=== PATIENT | female | born 1975 | race African-American/Black ===

== ENCOUNTER 2017-01-14 17:43 | Emergency (ER) | payer OTHER ==
[2017-01-14 17:54] VITALS: BP 150/68
--- NOTE | 2017-01-14 19:00 | ED Physician Documentation ---
General Adult - HISTORIAN Historian: patient - HPI Stated Complaint: Right Shoulder Pain Chief Complaint: General Adult Additional Information: rib l;esion rt t-3 ext rt shoulder Onset: days ago (3) Timing: worse Severity: moderate Further Comments: yes (takes ibu 8/day=inadequate relief) - ROS CONST: no problems EYES/ENT: none CVS/RESP: none GI/: none - PAST HX Past History: none Surgeries/Procedures: BTL Allergies/Adverse Reactions: Allergies Allergy/AdvReac Type Severity Reaction Status Date / Time Penicillins Allergy Verified 01/14/17 17:55 Home Medications: Ambulatory Orders Medication Instructions Recorded NK [NK] 01/14/17 - SOCIAL HX Smoking History: non-smoker Alcohol Use: none Drug Use: none - FAMILY HX Family History: Yes - VITAL SIGNS Vital Signs: Vital Signs Temp Pulse Resp BP Pulse Ox 98.1 F 90 18 150/68 99 01/14/17 17:45 01/14/17 17:45 01/14/17 17:45 01/14/17 17:45 01/14/17 17:45 - REVIEWED ASSESSMENTS Nursing Assessment Reviewed: Yes Vitals Reviewed: Yes General Adult Physical Exam - PHYSICAL EXAM GENERAL APPEARANCE: moderate distress EENT: eye inspection normal NECK: normal inspection, other (palp lesion t-3 rt ext to shoulder) RESPIRATORY: no resp distress, chest non-tender, breath sounds normal CVS: reg rate & rhythm, heart sounds normal ABDOMEN: soft, non-tender BACK: CVA tenderness (R) (t3) SKIN: warm/dry, normal color. No: cyanosis, diaphoresis, jaundice EXTREMITIES: non-tender, normal range of motion NEURO: oriented X3, CN's nml as tested, motor nml, sensation nml, mood/affect nml Discharge Clincal Impression: t-3 rt ligt sprain Referrals: Primary Doctor,No [Primary Care Provider] - 2 Days Home Medications: Ambulatory Orders NK [NK] 01/14/17 Condition: Good Disposition: 01 HOME, SELF-CARE Decision to Admit: NO Decision Time: 19:00
== END 2017-01-14 19:00 | disposition home or self-care (01) ==
LOC: ED 17:43
DX: S43.401A Unspecified sprain of right shoulder joint, initial encounter (principal); X58.XXXA Exposure to other specified factors, initial encounter; Y93.9 Activity, unspecified; Y99.9 Unspecified external cause status
CPT/HCPCS: 99283

== ENCOUNTER 2017-01-30 09:11 | Emergency (ER) | payer OTHER ==
--- NOTE | 2017-01-30 10:17 | ED Physician Documentation ---
Female Urogenital Problems - HISTORIAN Historian: patient - HPI Stated Complaint: Herpes outbreak Chief Complaint: Female Urogenital Problems Additional Information: recurrent genital herpes, 3rd time this year Onset: days ago (1) Severity: moderate Location of Pain: vaginal pain Further Comments: no - Vaginal Bleeding Sexual History: active - Associated Symptoms Urinary Symptoms: none Discharge: other (no discharge) - ROS CONST: no problems GI/: denies: nausea, vomiting, decreased appetite, diarrhea, black stools, bloody stools CVS/RESP: none EYES/ENT: none NEURO/PSYCH: none MS/SKIN/LYMPH: none - PAST HX Past History: other (herpes simplex) Other History: none Surgeries/Procedures: none Immunizations: referred to PCP Allergies/Adverse Reactions: Allergies Allergy/AdvReac Type Severity Reaction Status Date / Time Penicillins Allergy Mild Verified 01/30/17 09:25 Home Medications: Ambulatory Orders Medication Instructions Recorded Tramadol HCl [Ultram] 50 mg PO PRN 01/30/17 - SOCIAL HX Smoking History: cigarettes Alcohol Use: occasionally Drug Use: none - FAMILY HX Family History: none - VITAL SIGNS Vital Signs: Vital Signs Temp Pulse Resp BP Pulse Ox 98.2 F 91 H 16 119/71 99 01/30/17 09:22 01/30/17 09:22 01/30/17 09:22 01/30/17 09:31 01/30/17 09:22 - REVIEWED ASSESSMENTS Nursing Assessment Reviewed: Yes Vitals Reviewed: Yes Progress - Results/Orders Results/Orders: no testing ordered - Progress Progress: pt. stable entire time in er Critical Care Note - Critical Care Note Total Time (mins): 0 ED Results Lab/Radiology - Lab Results Lab Results: none ordered - Radiology Radiology Impressions: none ordered Female Urogenital Problems - EXAM General Appearance: no acute distress, alert EENT: eye inspection normal, ENT inspection normal, pharynx normal, no signs of dehydration, EMERSON, no nystagmus, TM's nml Neck: nml inspection Respiratory: no resp. distress, breath sounds nml CVS: reg rate & rhythm, heart sounds normal, equal pulses, no murmur Abdomen: soft, non-tender, no organomegaly, no distention, nml bowel sounds Back: non-tender Skin: color nml, no rash Extremities: non-tender, normal range of motion, no evidence of injury Neuro: oriented X3, CN's nml as tested, motor nml, sensation nml Discharge Clincal Impression: Genital herpes Qualifiers: Herpes simplex infection site: vulvovaginitis Qualified Code(s): A60.04 - Herpesviral vulvovaginitis Referrals: Primary Doctor,No [Primary Care Provider] - 2 Days Home Medications: Ambulatory Orders Tramadol HCl [Ultram] 50 mg PO PRN 01/30/17 Comments: discharged in stable condition with prescription for Valtrex 500 mg 1 p.o. bid for 7 days with 2 refills Condition: Stable Disposition: 01 HOME, SELF-CARE Decision to Admit: NO Decision Time: 10:00
[2017-01-30 10:18] VITALS: BP 122/72
== END 2017-01-30 10:15 | disposition home or self-care (01) ==
LOC: ED 09:11
DX: A60.04 Herpesviral vulvovaginitis (principal)
CPT/HCPCS: 99283

== ENCOUNTER 2017-02-12 03:10 | Emergency (ER) | payer OTHER ==
[2017-02-12] MEDS ORDERED: DIAZEPAM 5 MG/ML DISP.SYRIN ONE (03:50)
[2017-02-12 03:54] LABS: BASOPHILS % 0.5 (0.0-1.5); EOSINOPHILS % 1.5 % (0.0-6.8); MEAN CORPUSCULAR HEMOGLOBIN 32.2 pg (28.0-34.0); MEAN CORPUSCULAR VOLUME 92.4 fl (80.0-100.0); MONOCYTES % 3.7 % (0.0-11.0)
[2017-02-12] MEDS: DIAZEPAM 5 MG/ML DISP.SYRIN IVP ONE (03:54)
[2017-02-12 04:05] LABS: eGFR (African) > 60; eGFR (Non-African) > 60
--- NOTE | 2017-02-12 05:10 | ED Physician Documentation ---
Chest Pain - HISTORIAN Historian: patient - HPI Stated Complaint: Palpitations Chief Complaint: Chest Pain Additional Information: awoke 0100hrs chest discomfort anxiety rt shoulder and arm plain-all essentially gone now but shoulder pain-has had them before but this slightly different discomfort-awoke w/what she thought was panic attackstill feels some but that too ess gone Onset: hours (0100) Timing: sudden onset (awoke) Duration: constant, waxing, waning Last known Well Date: 02/12/17 Last Known Well Time: 02:45 Context: onset during:, sleep. denies: emotional upset (known) Severity: mild, moderate Quality: pressure, tightness, sharp Chest Pain Signs/Symptoms: denies: nausea, vomiting, diaphoresis - ROS CONST: none. denies: recent illness, recent injury MS/LYMPH: denies: ankle swelling, back pain (maybe slightly due to scoliosis) EYES/ENT: none NEURO/PSYCH: anxiety - PAST HX [place] risk factors: other (mitral valve plrolapse bipolar scoliosis) Lung disease: none Surgeries/Procedures: other (BTL TONSILS) Allergies/Adverse Reactions: Allergies Allergy/AdvReac Type Severity Reaction Status Date / Time Penicillins Allergy Mild Verified 02/12/17 03:46 Home Medications: Ambulatory Orders Medication Instructions Recorded Tramadol HCl [Ultram] 50 mg PO PRN 01/30/17 - SOCIAL HX Smoking History: non-smoker Alcohol Use: none Drug Use: none - FAMILY HX Family HX: none - VITAL SIGNS Vital Signs: Vital Signs Temp Pulse Resp BP Pulse Ox 97 F L 109 H 20 124/61 96 02/12/17 03:10 02/12/17 03:24 02/12/17 03:10 02/12/17 03:10 02/12/17 03:24 - REVIEWED ASSESSMENTS Nursing Assessment Reviewed: Yes Vitals Reviewed: Yes ED Results Lab/Radiology - Radiology Radiology Impressions: cxr= no acute disease seen - Orders Orders: ED Orders Category Date Time Status Continuous EKG monitoring Q30M Care 02/12/17 03:24 Active Continuous Pulse Oximetry Q30M Care 02/12/17 03:24 Active CHEST 1 VIEW [RAD] Stat Exams 02/12/17 03:24 Ordered CBC/PLATELET/DIFF Routine Lab 02/12/17 03:24 Received CMP Routine Lab 02/12/17 03:24 Received CREATINE KINASE Routine Lab 02/12/17 03:24 Received TROPONIN I (cTnI) Stat Lab 02/12/17 03:24 Received Diazepam [Valium] Med 02/12/17 03:50 Discontinued 5 mg .ROUTE .STK-MED ONE Diazepam [Valium] Med 02/12/17 03:50 Once 5 mg IVP NOW ONE EKG WITH COMPARISON Stat Ther 02/12/17 03:24 Ordered Chest Pain Physical Exam - EXAM General Appearance: mild distress, anxious EENT: eye inspection normal Neck: nml inspection, no carotid bruit Neuro: oriented X3, mood/affect nml, cognition normal Discharge Clincal Impression: atypical chest pain, hyperglycenia Referrals: Primary Doctor,No [Primary Care Provider] - 2 Days Home Medications: Ambulatory Orders Tramadol HCl [Ultram] 50 mg PO PRN 01/30/17 Comments: pt says better wants go home. will recheck bs via pcp very soon Condition: Good Disposition: 01 HOME, SELF-CARE Decision to Admit: NO Decision Time: 05:08
[2017-02-12 05:23] VITALS: BP 115/72
--- NOTE | 2017-02-12 07:21 | Diagnostic Imaging Report ---
PATRICK WORKMAN~ [facility] [address] [address] ~ ~ ~ ~ Report Submission Date: Feb 12, 2017 3:50:35 AM CDT Patient ~ Study Name: ELVIA DAMICO ~ Date: Feb 12, 2017 3:39:20 AM CDT ~ Modality Type: CR Gender: F ~ Description: CHEST : 77 ~ Institution: [facility] Physician: PATRICK WORKMAN ~ ~ ~ ~ Chest, 1 view History: Chest Pain. Findings: The heart size is normal. The lungs are clear. There is no pleural effusion or pneumothorax identified. The osseous structures are normal. Impression: 1. No acute pulmonary disease. ~ Electronically signed on Feb 12, 2017 3:50:35 AM CDT by: Alberto WISDOM
== END 2017-02-12 05:20 | disposition home or self-care (01) ==
LOC: ED 03:10
DX: R07.89 Other chest pain (principal); R73.9 Hyperglycemia, unspecified
CPT/HCPCS: 71010; 80053; 82550; 84484; 85025; 96374; 99283; J3360

== ENCOUNTER 2017-02-27 10:39 | Outpatient (CLI) | payer OTHER | END 2017-02-27 10:40 | LOC: LABRHC 10:39 | PROVIDERS: ATTEND Physician Assistant | DX: R30.0 Dysuria (principal) | CPT/HCPCS: 87086 ==

== ENCOUNTER 2017-03-09 21:07 | Emergency (ER) | payer OTHER ==
--- NOTE | 2017-03-09 21:42 | ED Physician Documentation ---
General Adult - HISTORIAN Historian: patient - HPI Stated Complaint: Cough Chief Complaint: General Adult Onset: days ago Timing: still present Severity: moderate Further Comments: yes (Pt is a 41 yo female with persistent cough for more than 10 days. Pt was rx'd keflex which she finished taking. Pt has diarrhea after taking Keflex. Pt has been wheezy, though she does not have asthma dx.) - ROS CONST: no problems EYES/ENT: other (hoarse voice) CVS/RESP: cough GI/: diarrhea MS/SKIN/LYMPH: none - PAST HX Past History: none Allergies/Adverse Reactions: Allergies Allergy/AdvReac Type Severity Reaction Status Date / Time Penicillins Allergy Mild Verified 03/09/17 21:22 Home Medications: Ambulatory Orders Medication Instructions Recorded Tramadol HCl [Ultram] 50 mg PO PRN 01/30/17 - SOCIAL HX Smoking History: non-smoker - FAMILY HX Family History: No - VITAL SIGNS Vital Signs: Vital Signs Temp Pulse Resp BP Pulse Ox 98.2 F 77 18 110/59 99 03/09/17 21:10 03/09/17 21:10 03/09/17 21:10 03/09/17 21:10 03/09/17 21:10 - REVIEWED ASSESSMENTS Nursing Assessment Reviewed: Yes Vitals Reviewed: Yes Progress - Progress Progress: Azithromycin 500 mg po in ER Metronidazole 500 mg po in ER. Rx Azithromycin 250 mg. Take one daily for 4 days. Rx Metronidazole 500 mg. Take one every 8 hrs for 7 days. Rx Albuterol (90 mcg/spray) MDI. Take 2 puffs every 4 to 6 hrs as needed for wheezing. General Adult Physical Exam - PHYSICAL EXAM GENERAL APPEARANCE: no distress EENT: pharynx normal NECK: normal inspection, supple RESPIRATORY: other (harsh cough) CVS: reg rate & rhythm, heart sounds normal BACK: normal inspection, no CVA tenderness SKIN: warm/dry, normal color EXTREMITIES: non-tender, normal range of motion, no evidence of injury, no edema NEURO: oriented X3, motor nml, sensation nml Discharge Clincal Impression: Persistent cough Referrals: Primary Doctor,No [Primary Care Provider] - 2 Days Home Medications: Ambulatory Orders Tramadol HCl [Ultram] 50 mg PO PRN 01/30/17 Condition: Good Disposition: 01 HOME, SELF-CARE Decision to Admit: NO Decision Time: 22:51
[2017-03-09] MEDS ORDERED: metroNIDAZOLE 500 MG TABLET PO ONE ×2 (22:05→22:06)
[2017-03-09] MEDS ORDERED: AZITHROMYCIN 250 MG TABLET PO ONE ×2 (22:05→22:06)
[2017-03-09 22:15] VITALS: BP 112/68
== END 2017-03-09 22:14 | disposition home or self-care (01) ==
LOC: ED 21:07
DX: R05 Cough (principal)
CPT/HCPCS: 99283

== ENCOUNTER 2017-03-20 09:05 | Emergency (ER) | payer OTHER ==
[2017-03-20 09:27] VITALS: BP 112/69
--- NOTE | 2017-03-20 09:32 | ED Physician Documentation ---
Female Urogenital Problems - HISTORIAN Historian: patient - HPI Stated Complaint: right flank pain, burning Chief Complaint: Female Urogenital Problems Additional Information: burning with urination, stress incontinence, leaks when coughing getting worse past few months, has recently been on flagyl for UTI, has malodorous discharge. Not on her period. Onset: days ago Severity: mild Location of Pain: flank pain Further Comments: no - Vaginal Bleeding LNMP (Last Known Menstrual Period): 02/28/17 - Associated Symptoms Urinary Symptoms: burning w/ urination Discharge: odorous discharge - ROS CONST: none GI/: denies: nausea, vomiting CVS/RESP: none EYES/ENT: none NEURO/PSYCH: none MS/SKIN/LYMPH: none - PAST HX Past History: none Other History: bladder infection Surgeries/Procedures: BTL Allergies/Adverse Reactions: Allergies Allergy/AdvReac Type Severity Reaction Status Date / Time Penicillins Allergy Mild Verified 03/20/17 09:15 Home Medications: Ambulatory Orders Medication Instructions Recorded Metronidazole [Metronidazole] 500 mg PO BID 03/20/17 - SOCIAL HX Smoking History: non-smoker Alcohol Use: rarely Drug Use: none - FAMILY HX Family History: none - VITAL SIGNS Vital Signs: Vital Signs Temp Pulse Resp BP Pulse Ox 99.2 F 84 16 112/69 99 03/20/17 09:16 03/20/17 09:16 03/20/17 09:16 03/20/17 09:16 03/20/17 09:16 - REVIEWED ASSESSMENTS Nursing Assessment Reviewed: Yes Vitals Reviewed: Yes ED Results Lab/Radiology - Lab Results Lab Results: UA shows blood but no leukocytes Female Urogenital Problems - EXAM General Appearance: no acute distress EENT: ENT inspection normal, no signs of dehydration Neck: nml inspection Respiratory: no resp. distress Abdomen: soft, non-tender, no distention. No: tenderness, guarding, rebound Back: non-tender Skin: color nml, no rash, warm,dry Extremities: non-tender Neuro: oriented X3 Discharge Clincal Impression: Cystitis, Yeast UTI, Stress incontinence in female Referrals: Primary Doctor,No [Primary Care Provider] - 2 Days Home Medications: Ambulatory Orders Metronidazole [Metronidazole] 500 mg PO BID 03/20/17 Condition: Good Disposition: 01 HOME, SELF-CARE Decision to Admit: NO Date of Decison to Admit: 03/20/17 Decision Time: 09:40
[2017-03-21 05:25] LABS: APPEARANCE,URINE CLEAR (CLEAR); COLOR,URINE YELLOW (YELLOW); OCCULT BLOOD,URINE 1+ (NEGATIVE); PH URINE 5.5 (5.0 - 8.0); UROBILINOGEN URINE 0.2 Eu (0.2-1.0)
== END 2017-03-20 09:57 | disposition home or self-care (01) ==
LOC: ED 09:05
DX: N30.90 Cystitis, unspecified without hematuria (principal); N39.0 Urinary tract infection, site not specified; N39.3 Stress incontinence (female) (male)
CPT/HCPCS: 81002; 99283

== ENCOUNTER 2017-04-24 00:25 | Emergency (ER) | payer OTHER ==
--- NOTE | 2017-04-24 00:51 | ED Physician Documentation ---
Upper Extremity Injury - HISTORIAN Historian: patient - HPI Stated Complaint: Rt FA pain since about 0020 Chief Complaint: Upper Extremity Injury Additional Information: pulling vigorously w/sprain ligts flexor surface rt forearm Onset: just prior to arrival (20 min ago domestic w/boyfriend) Where: home Severity: mild, moderate Duration: persistent since Associated Symptoms: denies: numbness distally Modifying Factors: pain on movement Further Comments: yes (no swelling or loss sensation - can flex rfingers ok but w/dixcomfort) - ROS CONST: no problems CVS/RESP: none NEURO: none MS/SKIN/LYMPH: none GI/: denies: nausea, vomiting - PAST HX Past History: Rt handed Allergies/Adverse Reactions: Allergies Allergy/AdvReac Type Severity Reaction Status Date / Time Penicillins Allergy Mild Verified 03/20/17 09:15 Home Medications: Ambulatory Orders Medication Instructions Recorded Metronidazole [Metronidazole] 500 mg PO BID 03/20/17 - SOCIAL HX Smoking History: non-smoker Alcohol Use: none Drug Use: none - FAMILY HX Family History: no significant history - VITAL SIGNS Vital Signs: Vital Signs Temp Pulse Resp BP Pulse Ox 84 18 128/77 99 04/24/17 00:25 04/24/17 00:25 04/24/17 00:25 04/24/17 00:25 - REVIEWED ASSESSMENTS Nursing Assessment Reviewed: Yes Vitals Reviewed: Yes Upper Extremity Injury Physic - Physical Exam General Appearance: mild distress Hand: normal inspection, non-tender, no evidence of injury, normal ROM Wrist: normal inspection. No: non-tender, no evidence of injury, normal ROM ( slight limited in flex ext hurts flexor tendons rt forearm) Elbow/Forearm: limited ROM, pain, soft tissue tenderness. No: normal inspection , normal ROM, bone tenderness, deformity, ecchymosis, swelling Shoulder: normal inspection Neuro/Vascular/Tendon: no vascular compromise Skin: warm,dry. No: diaphoretic, cool Head/ENT: nml inspection Neck/Back: nml inspection Resp/CVS: chest non-tender, breath sounds nml, heart sounds nml, lungs clear, reg. rate & rhythm Discharge Clincal Impression: ligt sprain rt forearm Referrals: Primary Doctor,No [Primary Care Provider] - 2 Days Home Medications: Ambulatory Orders Metronidazole [Metronidazole] 500 mg PO BID 03/20/17 Comments: home rest ice 20/60 min ibu or tylenol avoid strenuous use f/u if not better 5- 7 days Condition: Good Disposition: 01 HOME, SELF-CARE Decision to Admit: NO Decision Time: 00:56
[2017-04-24 00:55] VITALS: BP 128/77
== END 2017-04-24 00:50 | disposition home or self-care (01) ==
LOC: ED 00:25
DX: S56.911A Strain of unspecified muscles, fascia and tendons at forearm level, right arm, initial encounter (principal); X58.XXXA Exposure to other specified factors, initial encounter; Y93.9 Activity, unspecified; Y99.9 Unspecified external cause status
CPT/HCPCS: 99283

== ENCOUNTER 2017-07-01 12:26 | Emergency (ER) | payer OTHER ==
--- NOTE | 2017-07-01 12:34 | ED Physician Documentation ---
General Adult - HISTORIAN Historian: patient - HPI Stated Complaint: sore throat and ear pain Chief Complaint: Sore Throat Onset: days ago (2) Timing: still present Severity: moderate Modifying Factors: none Context: non Quality: none Location: sore throat, left ear pain, fatigue, headache, chills, muscle aches Further Comments: no Last known Well Date: 06/29/17 Last Known Well Time: 08:00 Last known Well Code/Unknown Code: Unknown - ROS CONST: sweating, weakness, chills. denies: fever EYES/ENT: sore throat, nasal drainage, nasal congestion. denies: problems with vision CVS/RESP: cough. denies: chest pain, shortness of breath GI/: denies: abdominal pain, problems urinating, vomiting, nausea, diarrhea MS/SKIN/LYMPH: none. denies: rash NEURO/PSYCH: headache. denies: fainting, dizziness, numbness - PAST HX Past History: none Other History: none Surgeries/Procedures: none Immunizations: referred to PCP Allergies/Adverse Reactions: Allergies Allergy/AdvReac Type Severity Reaction Status Date / Time Penicillins Allergy Mild Verified 07/01/17 13:02 Home Medications: Ambulatory Orders Medication Instructions Recorded NK [NK] 07/01/17 - SOCIAL HX Smoking History: non-smoker Alcohol Use: none Drug Use: none - FAMILY HX Family History: No - VITAL SIGNS Vital Signs: Vital Signs Temp Pulse Resp BP Pulse Ox 128/77 04/24/17 00:54 - REVIEWED ASSESSMENTS Nursing Assessment Reviewed: Yes Vitals Reviewed: Yes General Adult Physical Exam - PHYSICAL EXAM GENERAL APPEARANCE: no distress EENT: eye inspection normal, TM's nml, pharyngeal erythema NECK: normal inspection RESPIRATORY: no resp distress CVS: reg rate & rhythm, heart sounds normal, equal pulses ABDOMEN: soft, normal bowel sounds SKIN: warm/dry, normal color NEURO: oriented X3, CN's nml as tested, motor nml Discharge Clincal Impression: Allergic rhinitis Qualifiers: Chronicity: unspecified Allergic rhinitis trigger: unspecified Allergic rhinitis seasonality: unspecified seasonality Qualified Code(s): J30.9 - Allergic rhinitis, unspecified Referrals: Primary Doctor,No [Primary Care Provider] - 2 Days Condition: Stable Disposition: 01 HOME, SELF-CARE Decision to Admit: NO Date of Decison to Admit: 07/01/17 Decision Time: 13:23
[2017-07-01 13:02] VITALS: BP 121/68
== END 2017-07-01 13:32 | disposition home or self-care (01) ==
LOC: ED 12:26
DX: J30.9 Allergic rhinitis, unspecified (principal)
CPT/HCPCS: 87070; 87400; 87880; 99283

== ENCOUNTER 2017-07-27 03:23 | Emergency (ER) | payer OTHER ==
--- NOTE | 2017-07-27 03:39 | ED Physician Documentation ---
General Adult - HISTORIAN Historian: patient - HPI Stated Complaint: headache, congestion Chief Complaint: Allergies Onset: other (5 hours ago ) Timing: still present Severity: moderate Further Comments: yes (She states around 10 pm she noticed right ear pain and headache. She reports a sinus pain around right eye and down into ear. No fever. She has tried Alkazelter with no relief. She was given Clairtin but she did stop taking that.) Last known Well Code/Unknown Code: Unknown - ROS CONST: denies: fever EYES/ENT: nasal drainage, nasal congestion. denies: sore throat CVS/RESP: cough GI/: nausea (from headache she feels ). denies: vomiting MS/SKIN/LYMPH: denies: rash NEURO/PSYCH: headache. denies: dizziness - PAST HX Past History: none Other History: none Surgeries/Procedures: other (TBL and tonsilectomy ) Immunizations: referred to PCP Allergies/Adverse Reactions: Allergies Allergy/AdvReac Type Severity Reaction Status Date / Time Penicillins Allergy Mild Verified 07/27/17 03:32 Home Medications: Ambulatory Orders Medication Instructions Recorded NK [NK] 07/27/17 - SOCIAL HX Smoking History: non-smoker Alcohol Use: none Drug Use: none - FAMILY HX Family History: No - VITAL SIGNS Vital Signs: Vital Signs Temp Pulse Resp BP Pulse Ox 97.9 F 78 16 144/61 96 07/27/17 03:25 07/27/17 03:25 07/27/17 03:25 07/27/17 03:25 07/27/17 03:25 - REVIEWED ASSESSMENTS Nursing Assessment Reviewed: Yes Vitals Reviewed: Yes General Adult Physical Exam - PHYSICAL EXAM GENERAL APPEARANCE: no distress EENT: eye inspection normal, abnormal TM (on right ear ), purulent nasal drainage (Pharynx ), other (Sinus pain and pressure right frontal ) NECK: normal inspection RESPIRATORY: no resp distress, chest non-tender, breath sounds normal CVS: reg rate & rhythm, heart sounds normal, equal pulses, no murmur ABDOMEN: soft, normal bowel sounds SKIN: warm/dry, normal color EXTREMITIES: non-tender, normal range of motion, no evidence of injury, no edema NEURO: oriented X3, CN's nml as tested, motor nml, sensation nml Discharge Clincal Impression: Sinusitis Qualifiers: Sinusitis location: frontal Chronicity: acute Recurrence: recurrent Qualified Code(s): J01.11 - Acute recurrent frontal sinusitis Referrals: Primary Doctor,No [Primary Care Provider] - 2 Days Condition: Stable Disposition: 01 HOME, SELF-CARE Decision to Admit: NO Date of Decison to Admit: 07/27/17 Decision Time: 03:47
[2017-07-27] MEDS ORDERED: KETOROLAC TROMETHAMINE 60 MG/2 ML VIAL IM ONE (03:49)
[2017-07-27] MEDS ORDERED: KETOROLAC TROMETHAMINE 60 MG/2 ML VIAL ONE (03:50)
[2017-07-27 03:59] VITALS: BP 124/80
== END 2017-07-27 03:55 | disposition home or self-care (01) ==
LOC: ED 03:23
DX: J01.11 Acute recurrent frontal sinusitis (principal)
CPT/HCPCS: 96372; 99283; J1885

== ENCOUNTER 2017-09-23 15:37 | Emergency (ER) | payer BC ==
[2017-09-23 16:02] VITALS: BP 134/98
--- NOTE | 2017-09-23 16:02 | ED Physician Documentation ---
Upper Respiratory Symptoms - HISTORIAN Historian: patient - HPI Chief Complaint: Cough/ Upper Respiratory Additional Information: URI with cough, for 1 week, cough is constant, she has stress incontinence and is soaking thru many pads, needs help with cough. no other complaints Onset: days ago Duration: constant Context: denies: recent foreign travel, insect bite(s) Severity: mild Associated Symptoms: denies: fever, chills Worsened by Deep Breath: No Further Comments: no - ROS CONST/EYES: denies: weakness, eye redness CVS/RESP: none LYMPH: denies: leg swelling GI/: none NEURO/PSYCH: denies: fainting, dizziness MS/SKIN: denies: joint pain, muscle aches - PAST HX Lung Disease: none PE Risk Factors: none Surgeries/Procedures: none Allergies/Adverse Reactions: Allergies Allergy/AdvReac Type Severity Reaction Status Date / Time Penicillins Allergy Mild Verified 07/27/17 03:32 - SOCIAL HX Smoking History: non-smoker Alcohol Use: none Drug Use: none - FAMILY HX Family History: none - VITAL SIGNS Vital Signs: Vital Signs Temp Pulse Resp BP Pulse Ox 124/80 07/27/17 03:55 - REVIEWED ASSESSMENTS Nursing Assessment Reviewed: Yes Vitals Reviewed: Yes Upper Respiratory Symptoms - EXAM General Appearance: no acute distress, alert EENT: nml ENT inspection Neck: normal inspection Respiratory: no resp. distress, breath sounds nml, no pain on inspiration, speaks full sentences. No: wheezes, rales, rhonchi Abdomen: non-tender CVS: reg rate & rhythm, heart sounds normal, equal pulses Skin: color nml, no rash, warm,dry Extremities: non-tender Neuro/Psych: oriented x3 Discharge Clincal Impression: Cough, Stress incontinence in female Referrals: Primary Doctor,No [Primary Care Provider] - 2 Days Condition: Good Disposition: 01 HOME, SELF-CARE Decision to Admit: NO Date of Decison to Admit: 09/23/17 Decision Time: 16:03
== END 2017-09-23 16:11 | disposition home or self-care (01) ==
LOC: ED 15:37
DX: R05 Cough (principal); N39.3 Stress incontinence (female) (male)
CPT/HCPCS: 99282

== ENCOUNTER 2017-09-29 15:06 | Emergency (ER) | payer BC, OTHER ==
[2017-09-29 15:54] VITALS: BP 146/84
--- NOTE | 2017-09-29 15:56 | ED Physician Documentation ---
Upper Respiratory Symptoms - HISTORIAN Historian: patient - HPI Chief Complaint: Cough/ Upper Respiratory Additional Information: 2 week history of cough. Sometimes productive of green/clear phlegm. Tickling in her throat but does feel deep at times. Wheezing some with laying down. Does have a history of asthma as a child. Feels cold at times, no fever or chills noted. Cough is worse with laying flat. Having some sinus drainage. Was seen in the ED on the 7th and started on tesselon perles which have not helped. Onset: days ago (14 days) Duration: constant Severity: mild Associated Symptoms: sweating, runny nose, sinus drainage, sore throat (from coughing), allergy (???), productive cough. denies: fever, chills, earache, sinus pain, hoarseness, chest pain, bloody cough Worsened by Deep Breath: Yes Further Comments: yes (Has been havign some stress incontinence problems with cough) - ROS CONST/EYES: denies: weakness CVS/RESP: denies: chest pain, shortness of breath, palpitations LYMPH: denies: leg swelling - PAST HX Lung Disease: asthma (as child) PE Risk Factors: other (deprssion). denies: hx DVT Surgeries/Procedures: BLT, other (T&A) Immunizations: referred to PCP Allergies/Adverse Reactions: Allergies Allergy/AdvReac Type Severity Reaction Status Date / Time Penicillins Allergy Mild Verified 09/29/17 15:55 Home Medications: Ambulatory Orders Medication Instructions Recorded NK [NK] 09/29/17 - SOCIAL HX Smoking History: non-smoker Alcohol Use: occasionally Drug Use: none - FAMILY HX Family History: no significant history - VITAL SIGNS Vital Signs: Vital Signs Temp Pulse Resp BP Pulse Ox 98.1 F 79 20 146/84 100 09/29/17 15:07 09/29/17 15:07 09/29/17 15:07 09/29/17 15:07 09/29/17 15:07 - REVIEWED ASSESSMENTS Nursing Assessment Reviewed: Yes Vitals Reviewed: Yes ED Results Lab/Radiology - Lab Results Lab Results: Lab Results 09/29/17 09/29/17 09/29/17 17:15 17:15 15:42 WBC 7.80 K/ul K/ul (4.00-12.00) RBC 4.20 M/ul M/ul (3.90-5.20) Hgb 13.4 g/dL g/dL (12.0-16.0) Hct 39.0 % % (34.5-46.5) MCV 92.9 fl fl (80.0-100.0) MCH 31.9 pg pg (28.0-34.0) MCHC 34.3 g/dL g/dL (30.0-36.0) RDW 12.5 % % (11.3-14.3) Plt Count 250 K/mm3 K/mm3 (130-400) Neut % (Auto) 75.2 % % (39.0-79.0) Lymph % (Auto) 18.6 % % (16.0-50.0) [place] % (Auto) 3.0 % % (0.0-11.0) Eos % (Auto) 1.8 % % (0.0-6.8) Baso % (Auto) 0.6 (0.0-1.5) Neut # (Auto) 5.9 # k/uL # k/uL (1.4-7.7) Lymph # (Auto) 1.5 # k/uL # k/uL (0.6-4.0) [place] # (Auto) 0.2 # k/uL # k/uL (0.0-0.9) Eos # (Auto) 0.1 # k/uL # k/uL (0.0-0.6) Baso # (Auto) 0.0 # k/uL # k/uL (0.0-0.5) Reactive Lymphs % 0.9 % % (0.0-5.0) Reactive Lymphs # 0.1 # k/uL # k/uL (0.0-0.8) Sodium 141 mmol/L mmol/L (136-145) Potassium 4.2 mmol/L mmol/L (3.5-5.1) Chloride 100 mmol/L mmol/L (98-107) Carbon Dioxide 27 mmol/L mmol/L (22-30) BUN 7 mg/dL mg/dL (7-17) Creatinine 0.80 mg/dL mg/dL (0.52-1.04) Estimated Creat Clear 232 Est GFR ( Amer) > 60 (60 - ) Est GFR (Non-Af Amer) > 60 (60 - ) Glucose 107 mg/dL H mg/dL (74-106) Calcium 9.5 mg/dL mg/dL (8.4-10.2) Total Bilirubin 0.7 mg/dL mg/dL (0.2-1.3) AST 22 U/L U/L (15-46) ALT 32 U/L U/L (13-69) Alkaline Phosphatase 71 U/L U/L (38-126) Total Protein 7.4 g/dL g/dL (6.3-8.2) Albumin 4.2 g/dL g/dL (3.5-5.0) Group A Strep Screen Negative (NEGATIVE) - Radiology Radiology Impressions: Examination: PA and lateral chest. History: PATIENT STATES PRODUCTIVE COUGH FOR TWO WEEKS. NON-SMOKER. (Hx) / COUGH (DICOM Hx) / COUGH (Pt comments) Comparison exam: 12 February 2017 Findings: PA lateral chest demonstrate a normal cardiac and mediastinal silhouette. No focal infiltrate. No blunting of the costophrenic margins. Osseous structures are appropriate for age. Impression: No acute pulmonary process. - Orders Orders: ED Orders Category Date Time Status CHEST 2VIEW [RAD] Routine Exams 09/29/17 Completed CBC/PLATELET/DIFF Routine Lab 09/29/17 17:15 Completed CMP [CMP] Routine Lab 09/29/17 17:15 Completed GRP A STREP SCREEN Routine Lab 09/29/17 15:42 Completed THROAT CULTURE Routine Lab 09/29/17 15:42 Received methylPREDNISolone ACETATE [Depo-Medrol] Med 09/29/17 17:58 Once 80 mg IM NOW ONE Upper Respiratory Symptoms - EXAM General Appearance: alert, mild distress EENT: nml ENT inspection, nose nml, pharynx nml Neck: normal inspection, thyroid normal, supple. No: stiff neck Respiratory: no resp. distress, breath sounds nml, speaks full sentences. No: wheezes, rales, rhonchi Abdomen: non-tender, no organomegaly, nml bowel sounds, no distention CVS: reg rate & rhythm, heart sounds normal, equal pulses, no murmur Skin: color nml, no rash, warm,dry Neuro/Psych: oriented x3, mood/affect nml Discharge Clincal Impression: Cough in adult Referrals: Primary Doctor,No [Primary Care Provider] - 2 Days Additional Instructions: I believe that your cough may be related to some mild asthma exacerbation. Take albuterol MDI 2-3 times a day for the next week. If your symptoms continue to follow-up with a primary care provider or return to the ED. Condition: Stable Disposition: 01 HOME, SELF-CARE Decision to Admit: NO Date of Decison to Admit: 09/29/17 Decision Time: 17:59
--- NOTE | 2017-09-29 16:27 | Diagnostic Imaging Report ---
[facility] [id number] [facility].[address] [id number] Report Submission Date: Sep 29, 2017 4:21:22 PM RUBBER TESTER Patient Study Name: ELVIA DAMICO Date: Sep 29, 2017 4:10:19 PM RUBBER TESTER Modality Type: CR Gender: F Description: CHEST : 77 Institution: [facility] Physician: RAJENDRA MENDIETA Examination: PA and lateral chest. History: PATIENT STATES PRODUCTIVE COUGH FOR TWO WEEKS. NON-SMOKER. (Hx) / COUGH (DICOM Hx) / COUGH (Pt comments) Comparison exam: 12 February 2017 Findings: PA lateral chest demonstrate a normal cardiac and mediastinal silhouette. No focal infiltrate. No blunting of the costophrenic margins. Osseous structures are appropriate for age. Impression: No acute pulmonary process. Electronically signed on Sep 29, 2017 4:21:22 PM RUBBER TESTER by: Nito WISDOM
[2017-09-29 17:19] LABS: BASOPHILS % 0.6 (0.0-1.5); EOSINOPHILS % 1.8 % (0.0-6.8); MEAN CORPUSCULAR HEMOGLOBIN 31.9 pg (28.0-34.0); MEAN CORPUSCULAR VOLUME 92.9 fl (80.0-100.0); NEUTROPHILS # 5.9 # k/uL (1.4-7.7)
[2017-09-29 17:35] LABS: eGFR (African) > 60; eGFR (Non-African) > 60
[2017-09-29] MEDS ORDERED: methylPREDNISolone ACETATE 80 MG/ML VIAL IM ONE (17:58)
== END 2017-09-29 18:15 | disposition home or self-care (01) ==
LOC: ED 15:06
DX: R05 Cough (principal)
CPT/HCPCS: 71046; 80053; 85025; 87070; 87880; 96372; 99282

== ENCOUNTER 2017-11-09 23:08 | Emergency (ER) | payer SELFPAY ==
[2017-11-09] MEDS ORDERED: ONDANSETRON HCL/PF 4 MG/ 2ML VIAL IM ONE (23:26)
[2017-11-09] MEDS ORDERED: KETOROLAC TROMETHAMINE 60 MG/2 ML VIAL IM ONE (23:26)
--- NOTE | 2017-11-09 23:28 | ED Physician Documentation ---
General Adult - HISTORIAN Historian: patient - HPI Stated Complaint: headache Chief Complaint: General Adult Onset: hours Timing: still present Severity: moderate Further Comments: yes (Pt is a 41 yo female with a headache. Pt also has nausea. Pt has been stressed after dealing with her ex-boyfriend's new girlfriend. Pt has concerns about having Hep C, since she learned that ex- boyfriend may have been exposed to Hep C through his new girlfriend.) - ROS CONST: no problems EYES/ENT: none CVS/RESP: none GI/: nausea MS/SKIN/LYMPH: none NEURO/PSYCH: headache - PAST HX Past History: other (anxiety, depression) Surgeries/Procedures: BTL Allergies/Adverse Reactions: Allergies Allergy/AdvReac Type Severity Reaction Status Date / Time Penicillins Allergy Mild Verified 11/09/17 23:17 Home Medications: Ambulatory Orders Medication Instructions Recorded NK [NK] 09/29/17 - SOCIAL HX Smoking History: non-smoker - FAMILY HX Family History: No - VITAL SIGNS Vital Signs: Vital Signs Temp Pulse Resp BP Pulse Ox 101 H 16 124/63 99 11/09/17 23:10 11/09/17 23:10 11/09/17 23:10 11/09/17 23:10 - REVIEWED ASSESSMENTS Nursing Assessment Reviewed: Yes Vitals Reviewed: Yes Progress - Progress Progress: Toradol 60 mg IM Zofran 4 mg IM headache improved/resolved HCV blood testing pending. ED Results Lab/Radiology - Orders Orders: ED Orders Category Date Time Status Ketorolac Tromethamine [Toradol] Med 11/09/17 23:26 Once 60 mg IM NOW ONE Ondansetron HCl/Pf [Zofran 4 mg/2 ml] Med 11/09/17 23:26 Once 4 mg IM NOW ONE General Adult Physical Exam - PHYSICAL EXAM GENERAL APPEARANCE: moderate distress EENT: eye inspection normal, EMERSON NECK: normal inspection, supple RESPIRATORY: no resp distress, chest non-tender, breath sounds normal CVS: reg rate & rhythm, heart sounds normal BACK: normal inspection SKIN: warm/dry EXTREMITIES: non-tender, normal range of motion, no evidence of injury NEURO: oriented X3, CN's nml as tested, motor nml, sensation nml Discharge Clincal Impression: headache, concern for Hep C exposure Referrals: Primary Doctor,No [Primary Care Provider] - Condition: Good Disposition: 01 HOME, SELF-CARE Decision to Admit: NO Decision Time: 01:17
[2017-11-10 00:24] VITALS: BP 126/68
== END 2017-11-10 00:20 | disposition home or self-care (01) ==
LOC: ED 23:08
DX: R51 Headache (principal); Z20.5 Contact with and (suspected) exposure to viral hepatitis
CPT/HCPCS: 86803; J1885; J2405; 96372; 99283